=== PATIENT | male | born 1980 | race Caucasian/White ===

== ENCOUNTER 2021-02-13 12:55 | Observation (INO) ==
[2021-02-13] MEDS ORDERED: Acetaminophen IV 1,000 MG/100 ML BAG IVPB ONE ×2 (17:46→18:04)
[2021-02-13] MEDS ORDERED: Ondansetron 4 MG/2 ML VIAL IVP PRN ×3 (17:47→20:53)
[2021-02-13] MEDS ORDERED: Lidocaine -MPF 2% 2 ML VIAL ONE (18:00)
[2021-02-13] MEDS ORDERED: *HR* Propofol 200 MG/20 ML VIAL IVP ONE ×2 (18:00→18:55)
[2021-02-13] MEDS ORDERED: *HR* Rocuronium Bromide 50 MG/5 ML VIAL ONE ×2 (18:00→18:18)
[2021-02-13] MEDS ORDERED: *HR* FentaNYL (PF) 100 MCG/2 ML VIAL ONE (18:02)
[2021-02-13] MEDS ORDERED: *HR* Midazolam HCl 2 MG/2 ML VIAL ONE (18:03)
[2021-02-13] MEDS ORDERED: Famotidine 20 MG/2 ML VIAL ONE (18:04)
[2021-02-13] MEDS ORDERED: Lidocaine HCL 4 ML Topical Solution (Laryng-O-Jet Kit Sterile Pak) TP ONE (18:04)
[2021-02-13] MEDS ORDERED: Ondansetron 4 MG/2 ML VIAL ONE (18:18)
[2021-02-13] MEDS ORDERED: *HR* HYDROmorphone PF 0.5 MG/0.5 ML SYRINGE IVP PRN (18:29)
[2021-02-13] MEDS ORDERED: Piperacillin/Tazobactam 3.375 GM in 0.9 % Sodium Chloride Mini Bag 100 ML IVPB SCH (19:00)
[2021-02-13] MEDS ORDERED: Sugammadex Sodium 200 MG/2 ML VIAL IV ONE (19:21)
[2021-02-13] MEDS ORDERED: *HR* OxyCODONE/APAP 5/325 TABLET PO PRN (20:53)
[2021-02-13] MEDS: Ketorolac 15 MG/ML VIAL IVP SCH (23:44)
[2021-02-13] MEDS: 0.9 % Sodium Chloride 1,000 ML IVC SCH (23:50)
[2021-02-14] MEDS ORDERED: Piperacillin/Tazobactam 3.375 GM in 0.9 % Sodium Chloride Mini Bag 100 ML IVPB SCH (03:00)
[2021-02-14] MEDS: Ketorolac 15 MG/ML VIAL IVP SCH (05:18)
[2021-02-14] MEDS: 0.9 % Sodium Chloride 1,000 ML IVC SCH (07:56)
[2021-02-14 10:01] VITALS: BP 105/69; PULSE 82; TEMP 98.8; O2SAT 93
== END 2021-02-14 11:30 | disposition home or self-care (01) ==
LOC: 3ANU
PROVIDERS: ADMIT Surgery; ATTEND Surgery